=== PATIENT | male | born 1980 | race Caucasian/White ===

== ENCOUNTER 2020-10-04 11:00 | Emergency (ER) | payer BC ==
[~2020-10-04] VITALS: Ht 180.3 cm; Wt 84.1 kg
[~2020-10-04 11:00] MED LIST: AUGMENTIN875TAB PO; CLINDAMYCIN HC300 MG PO; NO HOME MEDS; PERCOCET 5/325M1 TAB PO; TRAMADOL HCL50 MG PO
[2020-10-04] MEDS ORDERED: NAPROXEN500 MG PO (11:56)
[2020-10-04 12:03] VITALS: BP 140/74
== END 2020-10-04 12:10 | disposition home or self-care (01) | DRG 605 ==
LOC: ED 11:00
DX: S60.012A Contusion of left thumb without damage to nail, initial encounter (principal); S60.312A Abrasion of left thumb, initial encounter; W55.29XA Other contact with cow, initial encounter; Y93.89 Activity, other specified; Y92.79 Other farm location as the place of occurrence of the external cause